=== PATIENT | female | born 1985 | race American Indian/Alaskan Native ===

== ENCOUNTER 2020-09-17 12:50 | Outpatient (CLI) | payer OTHER | END 2020-09-17 13:09 | disposition home or self-care (01) | LOC: NST 12:50 | PROVIDERS: ATTEND Obstetrics & Gynecology Maternal & Fetal Medicine | DX: Z34.82 Encounter for supervision of other normal pregnancy, second trimester (principal) ==

== ENCOUNTER 2020-10-01 13:50 | Outpatient (CLI) | payer OTHER | END 2020-10-01 14:50 | disposition home or self-care (01) | LOC: NST 13:50 | PROVIDERS: ATTEND Obstetrics & Gynecology Maternal & Fetal Medicine | DX: Z34.83 Encounter for supervision of other normal pregnancy, third trimester (principal) ==

== ENCOUNTER 2020-10-22 13:12 | Outpatient (CLI) | payer OTHER | END 2020-10-22 13:39 | disposition home or self-care (01) | LOC: NST 13:12 | PROVIDERS: ATTEND Obstetrics & Gynecology Maternal & Fetal Medicine | DX: Z34.83 Encounter for supervision of other normal pregnancy, third trimester (principal) ==

== ENCOUNTER 2020-10-29 13:19 | Outpatient (CLI) | payer OTHER | END 2020-10-29 13:56 | disposition home or self-care (01) | LOC: NST 13:19 | PROVIDERS: ATTEND Obstetrics & Gynecology Maternal & Fetal Medicine | DX: Z34.83 Encounter for supervision of other normal pregnancy, third trimester (principal) ==

== ENCOUNTER 2020-11-12 12:52 | Outpatient (CLI) | payer OTHER | END 2020-11-12 13:22 | disposition home or self-care (01) | LOC: NST 12:52 | PROVIDERS: ATTEND Obstetrics & Gynecology Maternal & Fetal Medicine | DX: Z34.83 Encounter for supervision of other normal pregnancy, third trimester (principal) ==

== ENCOUNTER 2020-11-21 13:38 | Outpatient (CLI) | payer OTHER | END 2020-11-21 14:38 | disposition home or self-care (01) | LOC: NST 13:38 | PROVIDERS: ATTEND Obstetrics & Gynecology Maternal & Fetal Medicine | DX: Z34.82 Encounter for supervision of other normal pregnancy, second trimester (principal) ==

== ENCOUNTER 2020-11-25 09:47 | Outpatient (CLI) | payer OTHER | END 2020-11-25 10:10 | disposition home or self-care (01) | LOC: NST 09:47 | PROVIDERS: ATTEND Obstetrics & Gynecology Maternal & Fetal Medicine | DX: O30.093 Twin pregnancy, unable to determine number of placenta and number of amniotic sacs, third trimester (principal); Z3A.36 36 weeks gestation of pregnancy ==

== ENCOUNTER 2020-11-28 09:43 | Outpatient (CLI) | payer OTHER | END 2020-11-28 10:31 | disposition home or self-care (01) | LOC: NST 09:43 | PROVIDERS: ATTEND Obstetrics & Gynecology Maternal & Fetal Medicine | DX: O30.093 Twin pregnancy, unable to determine number of placenta and number of amniotic sacs, third trimester (principal) ==

== ENCOUNTER 2020-12-03 04:56 | Inpatient (IN) | payer OTHER ==
[~2020-12-03] VITALS: Ht 180.3 cm; Wt 89.8 kg
[2020-12-03] MEDS ORDERED: PRENATAL + DHA1 EACH PO (06:22)
== END 2020-12-06 13:46 | disposition home or self-care (01) | DRG 788 ==
LOC: LDR 04:56 → OB/GYN 20:27
PROVIDERS: ADMIT Obstetrics & Gynecology Maternal & Fetal Medicine; ATTEND Obstetrics & Gynecology Maternal & Fetal Medicine
PROC: 4A1HXFZ Monitoring of Products of Conception, Cardiac Rhythm, External Approach (ICD-10-PCS; 2020-12-03)
PROC: 10D00Z1 Extraction of Products of Conception, Low, Open Approach (ICD-10-PCS; principal; 2020-12-03 18:00)
DX: O62.0 Primary inadequate contractions (principal); Z3A.38 38 weeks gestation of pregnancy; Z37.2 Twins, both liveborn; Z20.822 Contact with and (suspected) exposure to COVID-19